=== PATIENT | male | born 1955 | race Caucasian/White ===

== ENCOUNTER 2018-07-18 13:24 | Emergency (ER) | payer BC ==
[2018-07-18 14:22] VITALS: BP 111/62
--- NOTE | 2018-07-18 14:41 | UC ---
UC General HPI - HPI Summary HPI Summary: NAUSEA, VOMITTING, AND DIARRHEA SINCE SUNDAY EVENING. BETTER THIS MORNING- ABLE TO KEEP FOOD/FLUIDS DOWN. LAST EMESIS SUNDAY NIGHT. DIARRHEA IMPROVING SLOWLY. TAKING ZOFRAN PRN. - History of Current Complaint Chief Complaint: UCGI Stated Complaint: DIARRHEA,NAUSEA,VOMITING x3 DAYS Time Seen by Provider: 07/18/18 14:16 Hx Obtained From: Patient Onset/Duration: Sudden Onset, Lasting Days Timing: Constant Onset Severity: Severe Current Severity: Mild Pain Intensity: 1 Associated Signs & Symptoms: Positive: Diarrhea, Nausea, Vomiting - Allergy/Home Medications Allergies/Adverse Reactions: Allergies Allergy/AdvReac Type Severity Reaction Status Date / Time No Known Allergies Allergy Verified 07/18/18 14:17 Home Medications: Home Medications NK [No Home Medications Reported] 07/18/18 [History Confirmed 07/18/18] PMH/Surg Hx/FS Hx/Imm Hx Previously Healthy: Yes - Surgical History Surgical History: Yes Surgery Procedure, Year, and Place: HERNIA. LEFT KIDNEY STENT PLACED/REMOVED; lithotripsy - Family History Known Family History: Negative: Hypertension - Social History Alcohol Use: None Substance Use Type: None Smoking Status (MU): Never Smoked Tobacco Review of Systems All Other Systems Reviewed And Are Negative: Yes Constitutional: Positive: Fatigue Skin: Positive: Negative Eyes: Positive: Negative ENT: Positive: Negative Respiratory: Positive: Negative Cardiovascular: Positive: Negative Gastrointestinal: Positive: Abdominal Pain, Vomiting, Diarrhea, Nausea Genitourinary: Positive: Negative Motor: Positive: Negative Neurovascular: Positive: Negative Musculoskeletal: Positive: Negative Neurological: Positive: Negative Psychological: Positive: Negative Is Patient Immunocompromised?: No Physical Exam Triage Information Reviewed: Yes Appearance: Well-Appearing, Well-Nourished, Pain Distress Vital Signs: Initial Vital Signs Temp 97.6 F 07/18/18 14:18 Pulse 99 07/18/18 14:18 Resp 16 07/18/18 14:18 BP 111/62 07/18/18 14:18 Pulse Ox 95 07/18/18 14:18 Vital Signs Reviewed: Yes Eye Exam: Normal ENT Exam: Normal Dental Exam: Normal Neck exam: Normal Respiratory Exam: Normal Cardiovascular Exam: Normal Abdomen Description: Positive: Nontender, No Organomegaly, Soft, CVA Tenderness (R) - neg, CVA Tenderness (L) - neg Bowel Sounds: Positive: Present Musculoskeletal Exam: Normal Neurological Exam: Normal Psychological Exam: Normal Skin Exam: Normal Course/Dx - Course Course Of Treatment: hx obtained, exam performed ,meds reviewed, patients symptoms are resolving and he is asking for a work note - Diagnoses Provider Diagnosis: Nausea & vomiting, Diarrhea Discharge - Sign-Out/Discharge Documenting (check all that apply): Patient Departure All imaging exams completed and their final reports reviewed: No Studies - Discharge Plan Condition: Stable Disposition: HOME Patient Education Materials: Acute Nausea and Vomiting (ED) Forms: *Work Release Referrals: No Primary Care Phys,NOPCP [Primary Care Provider] - Additional Instructions: 1. continue with the zofran as needed,bland foods and lots of hydration. 2. FOllow up as needed. - Billing Disposition and Condition Condition: STABLE Disposition: Home
== END 2018-07-18 15:06 | disposition home or self-care (01) ==
LOC: UCCORT 13:24
DX: R11.2 Nausea with vomiting, unspecified (principal); R19.7 Diarrhea, unspecified
CPT/HCPCS: 99201; G0463